=== PATIENT | female | born 1990 | race Caucasian/White ===

== ENCOUNTER 2020-12-11 07:05 | Inpatient (IN) | payer BC ==
[2020-12-11] MEDS ORDERED: Nalbuphine 10 MG/1 ML Vial IVPUSH PRN (09:12)
[2020-12-11] MEDS ORDERED: Calcium Carbonate 500 MG Tab.Chew PO PRN (09:12)
[2020-12-11] MEDS ORDERED: Ondansetron 4 MG/2 ML SDV IVPUSH PRN (09:12)
[2020-12-11] MEDS ORDERED: Sodium Chloride 0.9% 10 ML Syringe FLUSH PRN (09:12)
[2020-12-11] MEDS ORDERED: Lidocaine 1% 50 ML MDV INJECT ONE (09:12)
[2020-12-11] MEDS ORDERED: Oxytocin/Lactated Ringers 10 UNIT/1,000 ML BAG IV SCH ×2 (09:15)
[2020-12-11] MEDS ORDERED: Oxytocin/Lactated Ringers 10 UNIT/1,000 ML BAG IV ONE (09:20)
[2020-12-11] MEDS: Lactated Ringers 1,000 ML IV SCH ×2 (09:26→20:12)
[2020-12-11] MEDS ORDERED: Citric Acid/Sodium Citrate Solution 30 ML Cup ONE (16:53)
[2020-12-11] MEDS ORDERED: Metoclopramide 10 MG/2 ML SDV ONE (16:53)
[2020-12-11] MEDS ORDERED: Propofol 200 MG/20 ML SDV ONE (16:59)
[2020-12-11] MEDS ORDERED: Succinylcholine/Sod PF 100 MG/5 ML SYRINGE IV ONE (17:08)
[2020-12-11] MEDS ORDERED: fentaNYL 250 MCG/5 ML SDV ONE (17:09)
[2020-12-11] MEDS ORDERED: ceFAZolin 1 GM Vial ONE ×2 (17:11→17:18)
[2020-12-11] MEDS ORDERED: Bupivacaine 0.5% 30 ML SDV ONE (17:19)
[2020-12-11] MEDS ORDERED: Ketorolac 30 MG/ML SDV ONE (17:27)
[2020-12-11] MEDS ORDERED: Ondansetron 4 MG/2 ML SDV ONE (17:35)
[2020-12-11] MEDS ORDERED: Lactated Ringers 1,000 ML ONE (17:38)
[2020-12-11] MEDS ORDERED: fentaNYL 100 MCG/2 ML SDV IVPUSH PRN (18:00)
--- NOTE | 2020-12-11 18:01 | PCM.OPNOTE ---
- General Post-Op/Procedure Note Date of Surgery/Procedure: 12/11/20 Operative Procedure(s): primary Findings: Viable male, weight 3480, 8/9 APGARS at 1708. Normal uterus tubes and ovaries. Pre Op Diagnosis: non reassuring monitoring Post-Op Diagnosis: Same Anesthesia Technique: General ET Tube Primary Surgeon: Mona Liu Anesthesia Provider: Cuauhtemoc Ma Stogy Roller: Yadi Marcos Fluid Replacement, Intraop: 2,000 Output, Urine Amount: 350 EBL in mLs: 650 Complications: None Condition: Good Free Text/Narrative:: The patient was taken to the operating room where general anesthesia was dosed to surgical levels without difficulty. The patient was prepped and draped in the usual sterile fashion in the dorsal supine position with a leftward tilt. A Pfannenstiel skin incision was made with the scalpel and carried through to the underlying layer of fascia. The fascia was entered bluntly. The rectus muscles were dissected in the midline. The peritoneum was entered bluntly; this incision was extended superiorly and inferiorly with good visualization of the bladder. The bladder blade was inserted. The lower uterine segment was incised in a transverse fashion using the scalpel and with digital traction. Meconium stained fluid was noted. The infant was subsequently delivered by flexing the head to the incision. Body and shoulders followed without difficu lty. The cord was clamped and cut. The infant was subsequently handed to the awaiting instructor product inspection whose presence had been requested.. The placenta was delivered spontaneously intact with a three-vessel cord noted. The uterus was exteriorized and cleared of all clots and debris. The uterine incision was repaired in 2 layers using 0 monocryl. Hemostasis was visualized. Hemostasis was visualized bilaterally. The uterus was returned to the abdomen. The uterine incision was reexamined and it was noted to be hemostatic. The pelvis was copiously irrigated. The fascia was closed with 1 PDS suture, and the skin was closed with 3-0 monocryl. Sponge, lap, and instrument counts were correct x2. The patient was stable at the completion of the procedure and was subsequently transferred to the recovery room in stable condition.
--- NOTE | 2020-12-11 18:02 | PCM.POSTAN ---
POST ANESTHESIA ASSESSMENT - MENTAL STATUS Mental Status: Alert, Oriented - RESPIRATORY Respiratory Status: Respiratory Rate WNL, Airway Patent, O2 Saturation Stable - CARDIOVASCULAR CV Status: Pulse Rate WNL, Blood Pressure Stable - GASTROINTESTINAL GI Status: No Symptoms - PAIN Pain Score: 1 - POST OP HYDRATION Hydration Status: Adequate & Stable - OBSERVATIONS Free Text/Narrative:: no anesthesia complications noted
--- NOTE | 2020-12-11 18:04 | PCM.PREANE ---
Preanesthetic Assessment - Procedure Proposed Procedure: Stat emergency C- section pt in OR room1 when I arrived - Anesthesia/Transfusion/Family Hx Anesthesia History: Unknown Family History of Anesthesia Reaction: No Transfusion History: No Prior Transfusion(s) - Review of Systems General: Fatigue, Malaise Pulmonary: No Symptoms Cardiovascular: No Symptoms Gastrointestinal: Abdominal Pain (labor) Neurological: No Symptoms Other: Reports: None - Physical Assessment Height: 1.68 m Weight: 121.109 kg ASA Class: 2E Mental Status: Alert & Oriented x3 Airway Class: Mallampati = 3 Dentition: Reports: Normal Dentition Thyro-Mental Finger Breadths: 2 Mouth Opening Finger Breadths: 2 ROM/Head Extension: Full Lungs: Clear to Auscultation, Normal Respiratory Effort Cardiovascular: Regular Rate, Regular Rhythm - Lab Values: Laboratory Last Values WBC 8.41 K/mm3 (3.98-10.04) 12/11/20 07:55 RBC 4.06 M/mm3 (3.98-5.22) 12/11/20 07:55 Hgb 12.0 gm/dl (11.2-15.7) 12/11/20 07:55 Hct 36.8 % (34.1-44.9) 12/11/20 07:55 MCV 90.6 fl (79.4-94.8) 12/11/20 07:55 MCH 29.6 pg (25.6-32.2) 12/11/20 07:55 MCHC 32.6 g/dl (32.2-35.5) 12/11/20 07:55 RDW Std Deviation 45.9 fL (36.4-46.3) 12/11/20 07:55 Plt Count 251 K/mm3 (182-369) 12/11/20 07:55 MPV 10.0 fl (9.4-12.3) 12/11/20 07:55 Neut % (Auto) 81.0 % (34.0-71.1) H 12/11/20 07:55 Lymph % (Auto) 11.9 % (19.3-51.7) L 12/11/20 07:55 [place] % (Auto) 4.9 % (4.7-12.5) 12/11/20 07:55 Eos % (Auto) 0.7 (0.7-5.8) 12/11/20 07:55 Baso % (Auto) 0.2 % (0.1-1.2) 12/11/20 07:55 Neut # (Auto) 6.81 K/mm3 (1.56-6.13) H 12/11/20 07:55 Lymph # (Auto) 1.00 K/mm3 (1.18-3.74) L 12/11/20 07:55 [place] # (Auto) 0.41 K/mm3 (0.24-0.36) H 12/11/20 07:55 Eos # (Auto) 0.06 K/mm3 (0.04-0.36) 12/11/20 07:55 Baso # (Auto) 0.02 K/mm3 (0.01-0.08) 12/11/20 07:55 Manual Slide Review Abnormal smear 12/11/20 07:55 Sodium 140 mEq/L (136-145) 12/11/20 07:55 Potassium 3.7 mEq/L (3.5-5.1) 12/11/20 07:55 Chloride 106 mEq/L (98-107) 12/11/20 07:55 Carbon Dioxide 23 mEq/L (21-32) 12/11/20 07:55 Anion Gap 14.7 (5-15) 12/11/20 07:55 BUN 9 mg/dL (7-18) 12/11/20 07:55 Creatinine 0.5 mg/dL (0.55-1.02) L 12/11/20 07:55 Est Cr Clr Drug Dosing 154.01 mL/min 12/11/20 07:55 Estimated GFR (MDRD) > 60 mL/min (>60) 12/11/20 07:55 BUN/Creatinine Ratio 18.0 (14-18) 12/11/20 07:55 Glucose 102 mg/dL (70-99) H 12/11/20 07:55 Calcium 9.1 mg/dL (8.5-10.1) 12/11/20 07:55 Total Bilirubin 0.2 mg/dL (0.2-1.0) 12/11/20 07:55 AST 21 U/L (15-37) 12/11/20 07:55 ALT 11 U/L (14-59) L 12/11/20 07:55 Alkaline Phosphatase 96 U/L (46-116) 12/11/20 07:55 Total Protein 6.4 g/dl (6.4-8.2) 12/11/20 07:55 Albumin 2.5 g/dl (3.4-5.0) L 12/11/20 07:55 Globulin 3.9 gm/dL 12/11/20 07:55 Albumin/Globulin Ratio 0.6 (1-2) L 12/11/20 07:55 Urine Color Yellow (Yellow) 12/11/20 07:55 Urine Appearance Clear (Clear) 12/11/20 07:55 Urine pH 7.5 (5.0-8.0) 12/11/20 07:55 Ur Specific [place] 1.020 (1.005-1.030) 12/11/20 07:55 Urine Protein 1+ (Negative) H 12/11/20 07:55 Urine Glucose (UA) Negative (Negative) 12/11/20 07:55 Urine Ketones Trace (Negative) H 12/11/20 07:55 Urine Occult Blood Negative (Negative) 12/11/20 07:55 Urine Nitrite Negative (Negative) 12/11/20 07:55 Urine Bilirubin Negative (Negative) 12/11/20 07:55 Urine Urobilinogen 0.2 (0.2-1.0) 12/11/20 07:55 Ur Leukocyte Esterase Trace (Negative) H 12/11/20 07:55 Ur Random Creatinine 117.1 mg/dL (30.0-125.0) 12/11/20 07:55 U Random Total Protein 35.9 mg/dL (0.0-11.8) H 12/11/20 07:55 Protein/Creatinin Ratio 306.6 mg/g (0-149) H 12/11/20 07:55 RPR Non-reactive (NONREACTIVE) 12/11/20 07:55 SARS-CoV-2 RNA (IAN) Negative (NEGATIVE) 12/11/20 07:55 Blood Type A POSITIVE 12/11/20 07:55 Gel Antibody Screen Negative 12/11/20 07:55 - Allergies Allergies/Adverse Reactions: Allergies Allergy/AdvReac Type Severity Reaction Status Date / Time No Known Allergies Allergy Verified 12/11/20 09:10 - Anesthesia Plan Pre-Op Medication Ordered: None - Acknowledgements Anesthesia Type Planned: General Anesthesia Pt an Appropriate Candidate for the Planned Anesthesia: Yes Alternatives and Risks of Anesthesia Discussed w Pt/Guardian: Yes Pt/Guardian Understands and Agrees with Anesthesia Plan: Yes PreAnesthesia Questionnaire - Past Health History Medical/Surgical History: Denies Medical/Surgical History Gastrointestinal History: Reports: GERD - Past Surgical History Respiratory Surgical History: Reports: None GI Surgical History: Reports: None Female Surgical History: Reports: None - SUBSTANCE USE Tobacco Use Status *Q: Former Tobacco User Tobacco Use Within Last Twelve Months: No Second Hand Smoke Exposure: No Recreational Drug Use History: No - CURRENT (IN HOUSE) MEDS Current Meds: Current Medications Calcium Carbonate/Glycine (Calcium Carbonate 500 Mg Tab.Chew) 1,000 mg PO Q2H PRN PRN Reason: Indigestion Fentanyl (Fentanyl 100 Mcg/2 Ml Sdv) 50 mcg IVPUSH Q5M PRN PRN Reason: Pain Lactated Ringer's (Ringers, Lactated) 1,000 mls @ 100 mls/hr IV ASDIRECTED LEAH Last Admin: 12/11/20 09:26 Dose: 100 mls/hr Documented by: Oxytocin/Lactated Ringer's (Pitocin In Lr 10 Units/1,000 Ml) 10 unit in 1,000 mls @ 12 mls/hr IV TITRATE LEAH; Protocol Last Titration: 12/11/20 14:16 Dose: 12 munits/min, 72 mls/hr Documented by: Oxytocin/Lactated Ringer's (Pitocin In Lr 10 Units/1,000 Ml) 10 unit in 1,000 mls @ 500 mls/hr IV .CONTINUOUS LEAH Nalbuphine HCl (Nalbuphine 10 Mg/1 Ml Vial) 10 mg IVPUSH Q2H PRN PRN Reason: Pain Ondansetron HCl (Ondansetron 4 Mg/2 Ml Sdv) 4 mg IVPUSH Q4H PRN PRN Reason: Nausea/Vomiting Sodium Chloride (Sodium Chloride 0.9% 10 Ml Syringe) 10 ml FLUSH ASDIRECTED PRN PRN Reason: Keep Vein Open Discontinued Medications Bupivacaine HCl (Bupivacaine 0.5% 30 Ml Sdv) Confirm Administered Dose 30 ml .ROUTE .STK-MED ONE Stop: 12/11/20 17:20 Cefazolin Sodium (Cefazolin 1 Gm Vial) Confirm Administered Dose 2 gm .ROUTE .STK-MED ONE Stop: 12/11/20 17:12 Cefazolin Sodium (Cefazolin 1 Gm Vial) Confirm Administered Dose 1 gm .ROUTE .STK-MED ONE Stop: 12/11/20 17:19 Citric Acid/Sodium Citrate (Citric Acid/Sodium Citrate Solution 30 Ml Cup) Confirm Administered Dose 30 ml .ROUTE .STK-MED ONE Stop: 12/11/20 16:54 Fentanyl (Fentanyl 250 Mcg/5 Ml Sdv) Confirm Administered Dose 250 mcg .ROUTE .STK-MED ONE Stop: 12/11/20 17:10 Oxytocin/Lactated Ringer's (Pitocin In Lr 10 Units/1,000 Ml) Confirm Administered Dose 10 unit in 1,000 mls @ as directed IV .STK-MED ONE Stop: 12/11/20 09:21 Last Admin: 12/11/20 10:45 Dose: Not Given Documented by: Lactated Ringer's (Ringers, Lactated) Confirm Administered Dose 1,000 mls @ as directed .ROUTE .STK-MED ONE Stop: 12/11/20 17:39 Ketorolac Tromethamine (Ketorolac 30 Mg/Ml Sdv) Confirm Administered Dose 30 mg .ROUTE .STK-MED ONE Stop: 12/11/20 17:28 Lidocaine HCl (Lidocaine 1% 50 Ml Mdv) 50 ml INJECT ONETIME ONE Stop: 12/11/20 09:13 Metoclopramide HCl (Metoclopramide 10 Mg/2 Ml Sdv) Confirm Administered Dose 10 mg .ROUTE .STK-MED ONE Stop: 12/11/20 16:54 Ondansetron HCl (Ondansetron 4 Mg/2 Ml Sdv) Confirm Administered Dose 4 mg .ROUTE .STK-MED ONE Stop: 12/11/20 17:36 Propofol (Propofol 200 Mg/20 Ml Sdv) Confirm Administered Dose 200 mg .ROUTE .STK-MED ONE Stop: 12/11/20 17:00
--- NOTE | 2020-12-11 18:21 | CR ---
Abdomen: Supine view of the abdomen was obtained. Comparison: No previous abdominal imaging is available. Findings: Upper portions of the abdomen as well as lateral portions on the left side were not included on this study. There are no discrete soft tissue foreign bodies being seen. Impression: 1. No foreign bodies are appreciated on this limited abdomen study. Diagnostic code #1
[2020-12-11] MEDS ORDERED: Naloxone 0.4 MG/ML SDV IVPUSH PRN (19:28)
[2020-12-11] MEDS ORDERED: Dextrose 5%-Lactated Ringers 1,000 ML IV SCH (19:28)
[2020-12-11] MEDS ORDERED: diphenhydrAMINE 50 MG/ML SDV IVPUSH PRN (19:28)
[2020-12-11] MEDS ORDERED: Acetaminophen/oxyCODONE 325-5 MG Tab PO PRN (19:28)
[2020-12-11] MEDS ORDERED: ePHEDrine 50 MG/ML SDV IVPUSH PRN (19:28)
[2020-12-11] MEDS: Acetaminophen/oxyCODONE 325-5 MG Tab PO PRN (20:32)
[2020-12-12] MEDS: Ketorolac 30 MG/ML SDV IVPUSH SCH ×3 (00:17→12:12)
[2020-12-12] MEDS: Acetaminophen/oxyCODONE 325-5 MG Tab PO PRN ×2 (05:15→11:37)
--- NOTE | 2020-12-12 07:53 | PCM.LDHP ---
L&D History of Present Illness - General Date of Service: 12/12/20 Admit Problem/Dx: Admission Diagnosis/Problem Admission Diagnosis/Problem - History of Present Illness Introduction:: Late entry transcribed from my paper h&p as [employer] down yesterday morning 30 year old at 40w5 here for induction. PNC with Dr aLdd without complication a+/imm/gbs neg Pain Score: 1 - Related Data Allergies/Adverse Reactions: Allergies Allergy/AdvReac Type Severity Reaction Status Date / Time No Known Allergies Allergy Verified 12/11/20 09:10 Past Medical History - Past Health History Medical/Surgical History: Denies Medical/Surgical History Gastrointestinal History: Reports: GERD - Past Surgical History Respiratory Surgical History: Reports: None GI Surgical History: Reports: None Female Surgical History: Reports: None Social & Family History - Family History Family Medical History: No Pertinent Family History - Tobacco Use Tobacco Use Status *Q: Former Tobacco User Used Tobacco, but Quit: Yes Month/Year Tobacco Last Used: 2017 Second Hand Smoke Exposure: No - Caffeine Use Caffeine Use: Reports: None - Recreational Drug Use Recreational Drug Use: No H&P Review of Systems - Review of Systems: Review Of Systems: See Below General: Reports: No Symptoms HEENT: Reports: No Symptoms Pulmonary: Reports: No Symptoms Cardiovascular: Reports: No Symptoms Gastrointestinal: Reports: No Symptoms Genitourinary: Reports: No Symptoms Musculoskeletal: Reports: No Symptoms Skin: Reports: No Symptoms Psychiatric: Reports: No Symptoms Neurological: Reports: No Symptoms Hematologic/Lymphatic: Reports: No Symptoms Immunologic: Reports: No Symptoms L&D Exam - Exam Exam: See Below - Vital Signs Vital Signs: Last Vital Signs Temp 36.2 C 12/12/20 01:34 Pulse 80 12/12/20 01:34 Resp 14 12/12/20 01:34 BP 123/68 12/12/20 01:34 Pulse Ox 96 12/12/20 01:34 Weight: 121.109 kg - OB Specific Contraction Intensity: Moderate to Strong Movement: Active Heart Tones: Present Heart Rate (FHR) Variability: Moderate (6-25 bmp) Presentation: Vertex - Thomson Score Thomson Score Cervix Position: Posterior Thomson Score Consistency: Soft Thomson Score Effacement: 0-30% Thomson Score Dilation: 1-2 cm Thomson Score Infant's Station: -3 Thomson Score Total: 3 - Exam General: Alert, Oriented HEENT: PERRLA, Conjunctiva Clear, EACs Clear, EOMI, Hearing Intact, Mucosa Moist & [place], Nares Patent, Normal Nasal Septum, Posterior Pharynx Clear, TMs Clear Neck: Supple, Trachea Midline Lungs: Clear to Auscultation, Normal Respiratory Effort Cardiovascular: Regular Rate, Regular Rhythm GI/Abdominal Exam: Normal Bowel Sounds, Soft, Non-Tender, No Organomegaly, No Distention, No Abnormal Bruit, No Mass, Pelvis Stable Rectal Exam: Normal Exam, Normal Rectal Tone Genitourinary: Normal external exam, Normal bimanual exam, Normal speculum exam Back Exam: Normal Inspection, Full Range of Motion Extremities: Normal Inspection, Normal Range of Motion, Non-Tender, No Pedal Edema, Normal Capillary Refill Skin: Warm, Dry, Intact Neurological: Cranial Nerves Intact, Reflexes Equal Bilateral Psychiatric: Alert, Normal Affect, Normal Mood - Patient Data Lab Results Last 24 hrs: Laboratory Results - last 24 hr 12/11/20 12/11/20 12/11/20 Range/Units 07:55 07:55 07:55 WBC (3.98-10.04) K/mm3 RBC (3.98-5.22) M/mm3 Hgb (11.2-15.7) gm/dl Hct (34.1-44.9) % MCV (79.4-94.8) fl MCH (25.6-32.2) pg MCHC (32.2-35.5) g/dl RDW Std Deviation (36.4-46.3) fL Plt Count (182-369) K/mm3 MPV (9.4-12.3) fl Neut % (Auto) (34.0-71.1) % Lymph % (Auto) (19.3-51.7) % [place] % (Auto) (4.7-12.5) % Eos % (Auto) (0.7-5.8) Baso % (Auto) (0.1-1.2) % Neut # (Auto) (1.56-6.13) K/mm3 Lymph # (Auto) (1.18-3.74) K/mm3 [place] # (Auto) (0.24-0.36) K/mm3 Eos # (Auto) (0.04-0.36) K/mm3 Baso # (Auto) (0.01-0.08) K/mm3 Manual Slide Review Sodium 140 (136-145) mEq/L Potassium 3.7 (3.5-5.1) mEq/L Chloride 106 (98-107) mEq/L Carbon Dioxide 23 (21-32) mEq/L Anion Gap 14.7 (5-15) BUN 9 (7-18) mg/dL Creatinine 0.5 L (0.55-1.02) mg/dL Est Cr Clr Drug Dosing 154.01 mL/min Estimated GFR (MDRD) > 60 (>60) mL/min BUN/Creatinine Ratio 18.0 (14-18) Glucose 102 H (70-99) mg/dL Calcium 9.1 (8.5-10.1) mg/dL Total Bilirubin 0.2 (0.2-1.0) mg/dL AST 21 (15-37) U/L ALT 11 L (14-59) U/L Alkaline Phosphatase 96 (46-116) U/L Total Protein 6.4 (6.4-8.2) g/dl Albumin 2.5 L (3.4-5.0) g/dl Globulin 3.9 gm/dL Albumin/Globulin Ratio 0.6 L (1-2) Urine Color Yellow (Yellow) Urine Appearance Clear (Clear) Urine pH 7.5 (5.0-8.0) Ur Specific [place] 1.020 (1.005-1.030) Urine Protein 1+ H (Negative) Urine Glucose (UA) Negative (Negative) Urine Ketones Trace H (Negative) Urine Occult Blood Negative (Negative) Urine Nitrite Negative (Negative) Urine Bilirubin Negative (Negative) Urine Urobilinogen 0.2 (0.2-1.0) Ur Leukocyte Esterase Trace H (Negative) Ur Random Creatinine 117.1 (30.0-125.0) mg/dL U Random Total Protein 35.9 H (0.0-11.8) mg/dL Protein/Creatinin Ratio 306.6 H (0-149) mg/g RPR (NONREACTIVE) SARS-CoV-2 RNA (IAN) (NEGATIVE) Blood Type Gel Antibody Screen 12/11/20 12/11/20 12/11/20 Range/Units 07:55 07:55 07:55 WBC 8.41 (3.98-10.04) K/mm3 RBC 4.06 (3.98-5.22) M/mm3 Hgb 12.0 (11.2-15.7) gm/dl Hct 36.8 (34.1-44.9) % MCV 90.6 (79.4-94.8) fl MCH 29.6 (25.6-32.2) pg MCHC 32.6 (32.2-35.5) g/dl RDW Std Deviation 45.9 (36.4-46.3) fL Plt Count 251 (182-369) K/mm3 MPV 10.0 (9.4-12.3) fl Neut % (Auto) 81.0 H (34.0-71.1) % Lymph % (Auto) 11.9 L (19.3-51.7) % [place] % (Auto) 4.9 (4.7-12.5) % Eos % (Auto) 0.7 (0.7-5.8) Baso % (Auto) 0.2 (0.1-1.2) % Neut # (Auto) 6.81 H (1.56-6.13) K/mm3 Lymph # (Auto) 1.00 L (1.18-3.74) K/mm3 [place] # (Auto) 0.41 H (0.24-0.36) K/mm3 Eos # (Auto) 0.06 (0.04-0.36) K/mm3 Baso # (Auto) 0.02 (0.01-0.08) K/mm3 Manual Slide Review Abnormal smear Sodium (136-145) mEq/L Potassium (3.5-5.1) mEq/L Chloride (98-107) mEq/L Carbon Dioxide (21-32) mEq/L Anion Gap (5-15) BUN (7-18) mg/dL Creatinine (0.55-1.02) mg/dL Est Cr Clr Drug Dosing mL/min Estimated GFR (MDRD) (>60) mL/min BUN/Creatinine Ratio (14-18) Glucose (70-99) mg/dL Calcium (8.5-10.1) mg/dL Total Bilirubin (0.2-1.0) mg/dL AST (15-37) U/L ALT (14-59) U/L Alkaline Phosphatase (46-116) U/L Total Protein (6.4-8.2) g/dl Albumin (3.4-5.0) g/dl Globulin gm/dL Albumin/Globulin Ratio (1-2) Urine Color (Yellow) Urine Appearance (Clear) Urine pH (5.0-8.0) Ur Specific [place] (1.005-1.030) Urine Protein (Negative) Urine Glucose (UA) (Negative) Urine Ketones (Negative) Urine Occult Blood (Negative) Urine Nitrite (Negative) Urine Bilirubin (Negative) Urine Urobilinogen (0.2-1.0) Ur Leukocyte Esterase (Negative) Ur Random Creatinine (30.0-125.0) mg/dL U Random Total Protein (0.0-11.8) mg/dL Protein/Creatinin Ratio (0-149) mg/g RPR Non-reactive (NONREACTIVE) SARS-CoV-2 RNA (IAN) Negative (NEGATIVE) Blood Type Gel Antibody Screen 12/11/20 12/12/20 Range/Units 07:55 07:03 WBC 9.92 (3.98-10.04) K/mm3 RBC 2.98 L (3.98-5.22) M/mm3 Hgb 8.8 L D (11.2-15.7) gm/dl Hct 27.7 L (34.1-44.9) % MCV 93.0 (79.4-94.8) fl MCH 29.5 (25.6-32.2) pg MCHC 31.8 L (32.2-35.5) g/dl RDW Std Deviation 47.3 H (36.4-46.3) fL Plt Count 187 (182-369) K/mm3 MPV 9.1 L (9.4-12.3) fl Neut % (Auto) 82.4 H (34.0-71.1) % Lymph % (Auto) 11.6 L (19.3-51.7) % [place] % (Auto) 4.6 L (4.7-12.5) % Eos % (Auto) 0.5 L (0.7-5.8) Baso % (Auto) 0.1 (0.1-1.2) % Neut # (Auto) 8.17 H (1.56-6.13) K/mm3 Lymph # (Auto) 1.15 L (1.18-3.74) K/mm3 [place] # (Auto) 0.46 H (0.24-0.36) K/mm3 Eos # (Auto) 0.05 (0.04-0.36) K/mm3 Baso # (Auto) 0.01 (0.01-0.08) K/mm3 Manual Slide Review Sodium (136-145) mEq/L Potassium (3.5-5.1) mEq/L Chloride (98-107) mEq/L Carbon Dioxide (21-32) mEq/L Anion Gap (5-15) BUN (7-18) mg/dL Creatinine (0.55-1.02) mg/dL Est Cr Clr Drug Dosing mL/min Estimated GFR (MDRD) (>60) mL/min BUN/Creatinine Ratio (14-18) Glucose (70-99) mg/dL Calcium (8.5-10.1) mg/dL Total Bilirubin (0.2-1.0) mg/dL AST (15-37) U/L ALT (14-59) U/L Alkaline Phosphatase (46-116) U/L Total Protein (6.4-8.2) g/dl Albumin (3.4-5.0) g/dl Globulin gm/dL Albumin/Globulin Ratio (1-2) Urine Color (Yellow) Urine Appearance (Clear) Urine pH (5.0-8.0) Ur Specific [place] (1.005-1.030) Urine Protein (Negative) Urine Glucose (UA) (Negative) Urine Ketones (Negative) Urine Occult Blood (Negative) Urine Nitrite (Negative) Urine Bilirubin (Negative) Urine Urobilinogen (0.2-1.0) Ur Leukocyte Esterase (Negative) Ur Random Creatinine (30.0-125.0) mg/dL U Random Total Protein (0.0-11.8) mg/dL Protein/Creatinin Ratio (0-149) mg/g RPR (NONREACTIVE) SARS-CoV-2 RNA (IAN) (NEGATIVE) Blood Type A POSITIVE Gel Antibody Screen Negative Result Diagrams: 12/12/20 07:03 12/11/20 07:55 Problem List Initiated/Reviewed/Updated: Yes Orders Last 24hrs: Active Orders 24 hr Category Date Time Status Communication Order [RC] PER UNIT ROUTINE Care 12/11/20 19:28 Active Communication Order [RC] PER UNIT ROUTINE Care 12/11/20 19:28 Active Communication Order [RC] PER UNIT ROUTINE Care 12/11/20 19:28 Active Communication Order [RC] ROUTINE Care 12/11/20 18:00 Active Notify Provider Intake and Out [RC] ASDIRECTED Care 12/11/20 19:28 Active Notify Provider [RC] ASDIRECTED Care 12/11/20 18:00 Active Urinary Catheter Removal [RC] Per Unit Routine Care 12/12/20 17:55 Active Vital Signs [RC] Q4H Care 12/11/20 19:28 Active Regular Diet [DIET] Diet 12/11/20 Breakfast Active Regular Diet [DIET] Diet 12/11/20 Breakfast Active HEP C VIRUS AB [REF] Stat Lab 12/11/20 07:55 Received Acetaminophen/oxyCODONE [Percocet 325-5 MG] Med 12/11/20 19:28 Active 1 tab PO Q4H PRN Acetaminophen/oxyCODONE [Percocet 325-5 MG] Med 12/11/20 19:28 Active 2 tab PO Q4H PRN Ibuprofen [Motrin] Med 12/11/20 19:28 Active 600 mg PO Q6H PRN Ketorolac [Toradol] Med 12/12/20 00:15 Active 30 mg IVPUSH Q6H Naloxone [Narcan] Med 12/11/20 19:28 Active 0.1 mg IVPUSH SEECOMMENT PRN diphenhydrAMINE [Benadryl] Med 12/11/20 19:28 Active 25 mg IVPUSH Q6H PRN ePHEDrine [ePHEDrine sulfate] Med 12/11/20 19:28 Active 5 mg IVPUSH SEECOMMENT PRN fentaNYL [Sublimaze] Med 12/11/20 18:00 Active 50 mcg IVPUSH Q5M PRN Assess Lochia [WOMSER] Per Unit Routine Oth 12/11/20 19:28 Ordered Assess Uterine Involution [WOMSER] Per Unit Routine Oth 12/11/20 19:28 Ordered Medication Administration Instruction [OM.PC] Routine Oth 12/11/20 19:28 Ordered Resuscitation Status Routine Resus Stat 12/11/20 09:12 Ordered Medication Orders Diphenhydramine HCl (Diphenhydramine 50 Mg/Ml Sdv) 25 mg IVPUSH Q6H PRN PRN Reason: Itching or Nausea Ephedrine Sulfate (Ephedrine 50 Mg/Ml Sdv) 5 mg IVPUSH SEECOMMENT PRN PRN Reason: Other Fentanyl (Fentanyl 100 Mcg/2 Ml Sdv) 50 mcg IVPUSH Q5M PRN PRN Reason: Pain Ibuprofen (Ibuprofen 600 Mg Tab) 600 mg PO Q6H PRN PRN Reason: mild pain or fever Ketorolac Tromethamine (Ketorolac 30 Mg/Ml Sdv) 30 mg IVPUSH Q6H LEAH Stop: 12/12/20 12:16 Last Admin: 12/12/20 06:38 Dose: 30 mg Documented by: Admin: 12/12/20 00:17 Dose: 30 mg Documented by: ARLENE Naloxone HCl (Naloxone 0.4 Mg/Ml Sdv) 0.1 mg IVPUSH SEECOMMENT PRN PRN Reason: Respiratory Depression Oxycodone/Acetaminophen (Acetaminophen/Oxycodone 325-5 Mg Tab) 1 tab PO Q4H PRN PRN Reason: Pain (moderate 4-6) Oxycodone/Acetaminophen (Acetaminophen/Oxycodone 325-5 Mg Tab) 2 tab PO Q4H PRN PRN Reason: Pain (severe 7-10) Last Admin: 12/12/20 05:15 Dose: 2 tab Documented by: Admin: 12/11/20 20:32 Dose: 2 tab Documented by: ARLENE Assessment/Plan Comment:: Term induction. Powers bulb placed in usual fashion with speculum. Instilled 50 mL fluid.
--- NOTE | 2020-12-12 07:56 | PCM.PNPP ---
- General Info Date of Service: 12/12/20 Functional Status: Reports: Pain Controlled - Review of Systems General: Reports: No Symptoms HEENT: Reports: No Symptoms Pulmonary: Reports: No Symptoms Cardiovascular: Reports: No Symptoms Gastrointestinal: Reports: No Symptoms Genitourinary: Reports: No Symptoms Musculoskeletal: Reports: No Symptoms Skin: Reports: No Symptoms Neurological: Reports: No Symptoms Psychiatric: Reports: No Symptoms - General Info Date of Service: 12/12/20 - Patient Data Vital Signs - Most Recent: Last Vital Signs Temp 36.2 C 12/12/20 01:34 Pulse 80 12/12/20 01:34 Resp 14 12/12/20 01:34 BP 123/68 12/12/20 01:34 Pulse Ox 96 12/12/20 01:34 Weight - Most Recent: 121.109 kg I&O - Last 24 Hours: Intake & Output 12/11/20 12/12/20 12/12/20 22:59 06:59 14:59 Intake Total 2800 2100 Output Total 850 1000 Balance 1950 1100 Lab Results - Last 24 Hours: Laboratory Results - last 24 hr 12/11/20 12/11/20 12/11/20 Range/Units 07:55 07:55 07:55 WBC (3.98-10.04) K/mm3 RBC (3.98-5.22) M/mm3 Hgb (11.2-15.7) gm/dl Hct (34.1-44.9) % MCV (79.4-94.8) fl MCH (25.6-32.2) pg MCHC (32.2-35.5) g/dl RDW Std Deviation (36.4-46.3) fL Plt Count (182-369) K/mm3 MPV (9.4-12.3) fl Neut % (Auto) (34.0-71.1) % Lymph % (Auto) (19.3-51.7) % [place] % (Auto) (4.7-12.5) % Eos % (Auto) (0.7-5.8) Baso % (Auto) (0.1-1.2) % Neut # (Auto) (1.56-6.13) K/mm3 Lymph # (Auto) (1.18-3.74) K/mm3 [place] # (Auto) (0.24-0.36) K/mm3 Eos # (Auto) (0.04-0.36) K/mm3 Baso # (Auto) (0.01-0.08) K/mm3 Manual Slide Review Sodium 140 (136-145) mEq/L Potassium 3.7 (3.5-5.1) mEq/L Chloride 106 (98-107) mEq/L Carbon Dioxide 23 (21-32) mEq/L Anion Gap 14.7 (5-15) BUN 9 (7-18) mg/dL Creatinine 0.5 L (0.55-1.02) mg/dL Est Cr Clr Drug Dosing 154.01 mL/min Estimated GFR (MDRD) > 60 (>60) mL/min BUN/Creatinine Ratio 18.0 (14-18) Glucose 102 H (70-99) mg/dL Calcium 9.1 (8.5-10.1) mg/dL Total Bilirubin 0.2 (0.2-1.0) mg/dL AST 21 (15-37) U/L ALT 11 L (14-59) U/L Alkaline Phosphatase 96 (46-116) U/L Total Protein 6.4 (6.4-8.2) g/dl Albumin 2.5 L (3.4-5.0) g/dl Globulin 3.9 gm/dL Albumin/Globulin Ratio 0.6 L (1-2) Urine Color Yellow (Yellow) Urine Appearance Clear (Clear) Urine pH 7.5 (5.0-8.0) Ur Specific [place] 1.020 (1.005-1.030) Urine Protein 1+ H (Negative) Urine Glucose (UA) Negative (Negative) Urine Ketones Trace H (Negative) Urine Occult Blood Negative (Negative) Urine Nitrite Negative (Negative) Urine Bilirubin Negative (Negative) Urine Urobilinogen 0.2 (0.2-1.0) Ur Leukocyte Esterase Trace H (Negative) Ur Random Creatinine 117.1 (30.0-125.0) mg/dL U Random Total Protein 35.9 H (0.0-11.8) mg/dL Protein/Creatinin Ratio 306.6 H (0-149) mg/g RPR (NONREACTIVE) SARS-CoV-2 RNA (IAN) (NEGATIVE) Blood Type Gel Antibody Screen 12/11/20 12/11/20 12/11/20 Range/Units 07:55 07:55 07:55 WBC 8.41 (3.98-10.04) K/mm3 RBC 4.06 (3.98-5.22) M/mm3 Hgb 12.0 (11.2-15.7) gm/dl Hct 36.8 (34.1-44.9) % MCV 90.6 (79.4-94.8) fl MCH 29.6 (25.6-32.2) pg MCHC 32.6 (32.2-35.5) g/dl RDW Std Deviation 45.9 (36.4-46.3) fL Plt Count 251 (182-369) K/mm3 MPV 10.0 (9.4-12.3) fl Neut % (Auto) 81.0 H (34.0-71.1) % Lymph % (Auto) 11.9 L (19.3-51.7) % [place] % (Auto) 4.9 (4.7-12.5) % Eos % (Auto) 0.7 (0.7-5.8) Baso % (Auto) 0.2 (0.1-1.2) % Neut # (Auto) 6.81 H (1.56-6.13) K/mm3 Lymph # (Auto) 1.00 L (1.18-3.74) K/mm3 [place] # (Auto) 0.41 H (0.24-0.36) K/mm3 Eos # (Auto) 0.06 (0.04-0.36) K/mm3 Baso # (Auto) 0.02 (0.01-0.08) K/mm3 Manual Slide Review Abnormal smear Sodium (136-145) mEq/L Potassium (3.5-5.1) mEq/L Chloride (98-107) mEq/L Carbon Dioxide (21-32) mEq/L Anion Gap (5-15) BUN (7-18) mg/dL Creatinine (0.55-1.02) mg/dL Est Cr Clr Drug Dosing mL/min Estimated GFR (MDRD) (>60) mL/min BUN/Creatinine Ratio (14-18) Glucose (70-99) mg/dL Calcium (8.5-10.1) mg/dL Total Bilirubin (0.2-1.0) mg/dL AST (15-37) U/L ALT (14-59) U/L Alkaline Phosphatase (46-116) U/L Total Protein (6.4-8.2) g/dl Albumin (3.4-5.0) g/dl Globulin gm/dL Albumin/Globulin Ratio (1-2) Urine Color (Yellow) Urine Appearance (Clear) Urine pH (5.0-8.0) Ur Specific [place] (1.005-1.030) Urine Protein (Negative) Urine Glucose (UA) (Negative) Urine Ketones (Negative) Urine Occult Blood (Negative) Urine Nitrite (Negative) Urine Bilirubin (Negative) Urine Urobilinogen (0.2-1.0) Ur Leukocyte Esterase (Negative) Ur Random Creatinine (30.0-125.0) mg/dL U Random Total Protein (0.0-11.8) mg/dL Protein/Creatinin Ratio (0-149) mg/g RPR Non-reactive (NONREACTIVE) SARS-CoV-2 RNA (IAN) Negative (NEGATIVE) Blood Type Gel Antibody Screen 12/11/20 12/12/20 Range/Units 07:55 07:03 WBC 9.92 (3.98-10.04) K/mm3 RBC 2.98 L (3.98-5.22) M/mm3 Hgb 8.8 L D (11.2-15.7) gm/dl Hct 27.7 L (34.1-44.9) % MCV 93.0 (79.4-94.8) fl MCH 29.5 (25.6-32.2) pg MCHC 31.8 L (32.2-35.5) g/dl RDW Std Deviation 47.3 H (36.4-46.3) fL Plt Count 187 (182-369) K/mm3 MPV 9.1 L (9.4-12.3) fl Neut % (Auto) 82.4 H (34.0-71.1) % Lymph % (Auto) 11.6 L (19.3-51.7) % [place] % (Auto) 4.6 L (4.7-12.5) % Eos % (Auto) 0.5 L (0.7-5.8) Baso % (Auto) 0.1 (0.1-1.2) % Neut # (Auto) 8.17 H (1.56-6.13) K/mm3 Lymph # (Auto) 1.15 L (1.18-3.74) K/mm3 [place] # (Auto) 0.46 H (0.24-0.36) K/mm3 Eos # (Auto) 0.05 (0.04-0.36) K/mm3 Baso # (Auto) 0.01 (0.01-0.08) K/mm3 Manual Slide Review Sodium (136-145) mEq/L Potassium (3.5-5.1) mEq/L Chloride (98-107) mEq/L Carbon Dioxide (21-32) mEq/L Anion Gap (5-15) BUN (7-18) mg/dL Creatinine (0.55-1.02) mg/dL Est Cr Clr Drug Dosing mL/min Estimated GFR (MDRD) (>60) mL/min BUN/Creatinine Ratio (14-18) Glucose (70-99) mg/dL Calcium (8.5-10.1) mg/dL Total Bilirubin (0.2-1.0) mg/dL AST (15-37) U/L ALT (14-59) U/L Alkaline Phosphatase (46-116) U/L Total Protein (6.4-8.2) g/dl Albumin (3.4-5.0) g/dl Globulin gm/dL Albumin/Globulin Ratio (1-2) Urine Color (Yellow) Urine Appearance (Clear) Urine pH (5.0-8.0) Ur Specific [place] (1.005-1.030) Urine Protein (Negative) Urine Glucose (UA) (Negative) Urine Ketones (Negative) Urine Occult Blood (Negative) Urine Nitrite (Negative) Urine Bilirubin (Negative) Urine Urobilinogen (0.2-1.0) Ur Leukocyte Esterase (Negative) Ur Random Creatinine (30.0-125.0) mg/dL U Random Total Protein (0.0-11.8) mg/dL Protein/Creatinin Ratio (0-149) mg/g RPR (NONREACTIVE) SARS-CoV-2 RNA (IAN) (NEGATIVE) Blood Type A POSITIVE Gel Antibody Screen Negative Med Orders - Current: Current Medications Diphenhydramine HCl (Diphenhydramine 50 Mg/Ml Sdv) 25 mg IVPUSH Q6H PRN PRN Reason: Itching or Nausea Ephedrine Sulfate (Ephedrine 50 Mg/Ml Sdv) 5 mg IVPUSH SEECOMMENT PRN PRN Reason: Other Fentanyl (Fentanyl 100 Mcg/2 Ml Sdv) 50 mcg IVPUSH Q5M PRN PRN Reason: Pain Ibuprofen (Ibuprofen 600 Mg Tab) 600 mg PO Q6H PRN PRN Reason: mild pain or fever Ketorolac Tromethamine (Ketorolac 30 Mg/Ml Sdv) 30 mg IVPUSH Q6H LEAH Stop: 12/12/20 12:16 Last Admin: 12/12/20 06:38 Dose: 30 mg Documented by: Naloxone HCl (Naloxone 0.4 Mg/Ml Sdv) 0.1 mg IVPUSH SEECOMMENT PRN PRN Reason: Respiratory Depression Oxycodone/Acetaminophen (Acetaminophen/Oxycodone 325-5 Mg Tab) 1 tab PO Q4H PRN PRN Reason: Pain (moderate 4-6) Oxycodone/Acetaminophen (Acetaminophen/Oxycodone 325-5 Mg Tab) 2 tab PO Q4H PRN PRN Reason: Pain (severe 7-10) Last Admin: 12/12/20 05:15 Dose: 2 tab Documented by: Discontinued Medications Bupivacaine HCl (Bupivacaine 0.5% 30 Ml Sdv) Confirm Administered Dose 30 ml .ROUTE .STK-MED ONE Stop: 12/11/20 17:20 Calcium Carbonate/Glycine (Calcium Carbonate 500 Mg Tab.Chew) 1,000 mg PO Q2H PRN PRN Reason: Indigestion Cefazolin Sodium (Cefazolin 1 Gm Vial) Confirm Administered Dose 2 gm .ROUTE .STK-MED ONE Stop: 12/11/20 17:12 Cefazolin Sodium (Cefazolin 1 Gm Vial) Confirm Administered Dose 1 gm .ROUTE .STK-MED ONE Stop: 12/11/20 17:19 Citric Acid/Sodium Citrate (Citric Acid/Sodium Citrate Solution 30 Ml Cup) Confirm Administered Dose 30 ml .ROUTE .STK-MED ONE Stop: 12/11/20 16:54 Last Admin: 12/11/20 16:50 Dose: 30 ml Documented by: Fentanyl (Fentanyl 250 Mcg/5 Ml Sdv) Confirm Administered Dose 250 mcg .ROUTE .STK-MED ONE Stop: 12/11/20 17:10 Lactated Ringer's (Ringers, Lactated) 1,000 mls @ 100 mls/hr IV ASDIRECTED LEAH Last Admin: 12/11/20 20:12 Dose: 999 mls/hr Documented by: Oxytocin/Lactated Ringer's (Pitocin In Lr 10 Units/1,000 Ml) 10 unit in 1,000 mls @ 12 mls/hr IV TITRATE LEAH; Protocol Last Titration: 12/11/20 14:16 Dose: 12 munits/min, 72 mls/hr Documented by: Oxytocin/Lactated Ringer's (Pitocin In Lr 10 Units/1,000 Ml) 10 unit in 1,000 mls @ 500 mls/hr IV .CONTINUOUS LEAH Oxytocin/Lactated Ringer's (Pitocin In Lr 10 Units/1,000 Ml) Confirm Administered Dose 10 unit in 1,000 mls @ as directed IV .STK-MED ONE Stop: 12/11/20 09:21 Last Admin: 12/11/20 10:45 Dose: Not Given Documented by: Lactated Ringer's (Ringers, Lactated) Confirm Administered Dose 1,000 mls @ as directed .ROUTE .STK-MED ONE Stop: 12/11/20 17:39 Dextrose/Lactated Ringer's (Dextrose 5%-Lactated Ringers) 1,000 mls @ 125 mls/hr IV ASDIRECTED LEAH Stop: 12/12/20 03:27 Last Admin: 12/11/20 21:57 Dose: 125 mls/hr Documented by: Ketorolac Tromethamine (Ketorolac 30 Mg/Ml Sdv) Confirm Administered Dose 30 mg .ROUTE .STK-MED ONE Stop: 12/11/20 17:28 Lidocaine HCl (Lidocaine 1% 50 Ml Mdv) 50 ml INJECT ONETIME ONE Stop: 12/11/20 09:13 Metoclopramide HCl (Metoclopramide 10 Mg/2 Ml Sdv) Confirm Administered Dose 10 mg .ROUTE .STK-MED ONE Stop: 12/11/20 16:54 Last Admin: 12/11/20 20:11 Dose: Not Given Documented by: Nalbuphine HCl (Nalbuphine 10 Mg/1 Ml Vial) 10 mg IVPUSH Q2H PRN PRN Reason: Pain Ondansetron HCl (Ondansetron 4 Mg/2 Ml Sdv) 4 mg IVPUSH Q4H PRN PRN Reason: Nausea/Vomiting Ondansetron HCl (Ondansetron 4 Mg/2 Ml Sdv) Confirm Administered Dose 4 mg .ROUTE .STK-MED ONE Stop: 12/11/20 17:36 Propofol (Propofol 200 Mg/20 Ml Sdv) Confirm Administered Dose 200 mg .ROUTE .STK-MED ONE Stop: 12/11/20 17:00 Sodium Chloride (Sodium Chloride 0.9% 10 Ml Syringe) 10 ml FLUSH ASDIRECTED PRN PRN Reason: Keep Vein Open - Infant Interaction Support Person: - Recovery Exam Fundal Tone: Firm Fundal Level: 1 Fingerbreadths Below Umbilicus Fundal Placement: Midline Lochia Amount: Small Lochia Color: Rubra/Red Perineum Description: Intact, Minimal Bruising/Swelling Episiotomy/Laceration: None Bladder Status: Nonpalpable, Indwelling Catheter in Place Urinary Elimination: Indwelling Catheter - Exam General: Alert, Oriented HEENT: Pupils Equal Neck: Supple Lungs: Clear to Auscultation, Normal Respiratory Effort Cardiovascular: Regular Rate, Regular Rhythm GI/Abdominal Exam: Normal Bowel Sounds, Soft, Non-Tender, No Organomegaly, No Distention, No Abnormal Bruit, No Mass, Pelvis Stable Extremities: Normal Inspection, Normal Range of Motion, Non-Tender, No Pedal Edema, Normal Capillary Refill Skin: Warm, Dry, Intact Wound/Incisions: Healing Well Neurological: No New Focal Deficit Psy/Mental Status: Alert, Normal Affect, Normal Mood - Problem List Review Problem List Initiated/Reviewed/Updated: Yes - My Orders Last 24 Hours: My Active Orders 12/11/20 Breakfast Regular Diet [DIET] Regular Diet [DIET] 12/11/20 07:55 HEP C VIRUS AB [REF] Stat 12/11/20 09:12 Resuscitation Status Routine 12/11/20 19:28 Acetaminophen/oxyCODONE [Percocet 325-5 MG] 1 tab PO Q4H PRN Acetaminophen/oxyCODONE [Percocet 325-5 MG] 2 tab PO Q4H PRN Ibuprofen [Motrin] 600 mg PO Q6H PRN Naloxone [Narcan] 0.1 mg IVPUSH SEECOMMENT PRN diphenhydrAMINE [Benadryl] 25 mg IVPUSH Q6H PRN ePHEDrine [ePHEDrine sulfate] 5 mg IVPUSH SEECOMMENT PRN 12/11/20 19:28 Communication Order [RC] PER UNIT ROUTINE Communication Order [RC] PER UNIT ROUTINE Communication Order [RC] PER UNIT ROUTINE Notify Provider Intake and Out [RC] ASDIRECTED Vital Signs [RC] Q4H Assess Lochia [WOMSER] Per Unit Routine Assess Uterine Involution [WOMSER] Per Unit Routine Medication Administration Instruction [OM.PC] Routine 12/12/20 00:15 Ketorolac [Toradol] 30 mg IVPUSH Q6H 12/12/20 17:55 Urinary Catheter Removal [RC] Per Unit Routine - Assessment Assessment:: POD1 s/p primary . Pain controlled. Powers in place Ambulating, voiding, tolerating po's Breast feeding going great.
--- NOTE | 2020-12-12 09:58 | PCM48HPAN ---
Post Anesthesia Note - EVALUATION WITHIN 48HRS OF ANESTHETIC Vital Signs in Normal Range: Yes Patient Participated in Evaluation: Yes Respiratory Function Stable: Yes Airway Patent: Yes Cardiovascular Function Stable: Yes Hydration Status Stable: Yes Pain Control Satisfactory: Yes Nausea and Vomiting Control Satisfactory: Yes Mental Status Recovered: Yes Vital Signs: Last Vital Signs Temp 36.3 C 12/12/20 09:34 Pulse 81 12/12/20 09:34 Resp 18 12/12/20 09:34 BP 106/60 12/12/20 09:34 Pulse Ox 95 12/12/20 09:34 - COMMENTS/OBSERVATIONS Free Text/Narrative:: no anesthesia complications noted
[2020-12-12] MEDS: Ibuprofen 600 MG Tab PO PRN (19:17)
[2020-12-13] MEDS: Ibuprofen 600 MG Tab PO PRN (02:37)
== END 2020-12-13 02:48 | disposition home or self-care (01) | DRG 540 ==
LOC: JD.OB 07:05 → OBSVTOIN 17:08 → JD.OB 17:09
PROVIDERS: ADMIT Obstetrics & Gynecology; ATTEND Obstetrics & Gynecology
PROC: 10D00Z1 Extraction of Products of Conception, Low, Open Approach (ICD-10-PCS; principal; 2020-12-11)
DX: O48.0 Post-term pregnancy (principal); Z37.0 Single live birth; Z20.822 Contact with and (suspected) exposure to COVID-19; O99.62 Diseases of the digestive system complicating childbirth; K21.9 Gastro-esophageal reflux disease without esophagitis; Z3A.40 40 weeks gestation of pregnancy; Z87.891 Personal history of nicotine dependence; O77.0 Labor and delivery complicated by meconium in amniotic fluid
CPT/HCPCS: 01961; 36415; 59025; 74018; 74018-26; 80053; 81003; 82570; 84156; 85025; 86592; 86803; 86850; 86900; 86901; 99140; A9270-GY; J0330; J0690; J1885; J2405; J2590; J2704; J3010; J3490; J7120; J7121; U0002

== ENCOUNTER 2022-12-07 07:08 | Inpatient (IN) | payer BC ==
[2022-12-07] MEDS ORDERED: Sodium Chloride 0.9% 10 ML Syringe FLUSH PRN (07:19)
[2022-12-07] MEDS ORDERED: Nalbuphine 10 MG/0.5 ML Syringe IVPUSH PRN (07:19)
[2022-12-07] MEDS ORDERED: Ondansetron 4 MG/2 ML SDV IVPUSH PRN ×2 (07:19→15:43)
[2022-12-07] MEDS ORDERED: Oxytocin/Lactated Ringers 10 UNIT/1,000 ML BAG IV SCH (07:30)
[2022-12-07] MEDS: Oxytocin/Lactated Ringers 10 UNIT/1,000 ML BAG IV SCH ×2 (08:31→14:09)
[2022-12-07] MEDS: Lactated Ringers 1,000 ML IV SCH ×2 (08:31→14:09)
[2022-12-07 08:33] LABS: HEMATOCRIT 34.6 % (34.1-44.9); HEMOGLOBIN 11.2 gm/dl (11.2-15.7); MEAN CORPUSCULAR HEMOGLOBIN 28.9 pg (25.6-32.2); MEAN CORPUSCULAR HGB CONC 32.4 g/dl (32.2-35.5); MEAN CORPUSCULAR VOLUME 89.4 fl (79.4-94.8); MEAN PLATELET VOLUME 10.2 fl (9.4-12.3); RED BLOOD CELL COUNT 3.87 M/mm3 (3.98-5.22); WHITE BLOOD CELL COUNT,WBC 6.33 K/mm3 (3.98-10.04)
[2022-12-07 08:34] LABS: PLATELET COUNT,PLT 232 K/mm3 (182-369)
[2022-12-07] MEDS ORDERED: Sodium Chloride 0.9% 10 ML Syringe FLUSH SCH (09:00)
[2022-12-07] MEDS ORDERED: Citric Acid/Sodium Citrate Solution 30 ML Cup PO ONE (14:02)
[2022-12-07] MEDS ORDERED: ceFAZolin 2 GM in Sodium Chloride 0.9% 50 ML IV ONE (14:02)
[2022-12-07] MEDS ORDERED: Metoclopramide 10 MG/2 ML SDV IVPUSH ONE (14:02)
[2022-12-07] MEDS ORDERED: Azithromycin 500 MG in Sodium Chloride 0.9% 250 ML IV ONE (14:02)
[2022-12-07] MEDS ORDERED: Phenylephrine 1% 10 MG/ML SDV ONE (14:35)
[2022-12-07] MEDS ORDERED: Morphine PF 1 MG/ML Amp ONE (14:35)
[2022-12-07] MEDS ORDERED: Oxytocin 10 Units/1 ML SDV ONE ×2 (14:35→15:10)
[2022-12-07] MEDS ORDERED: ceFAZolin 2 GM Vial ONE (14:36)
[2022-12-07] MEDS ORDERED: Ketorolac 30 MG/ML SDV ONE (14:36)
[2022-12-07] MEDS ORDERED: Ondansetron 4 MG/2 ML SDV ONE (14:36)
[2022-12-07] MEDS ORDERED: diphenhydrAMINE 50 MG/ML SDV IVPUSH PRN ×2 (15:43→19:15)
[2022-12-07] MEDS ORDERED: fentaNYL 100 MCG/2 ML SDV IVPUSH PRN (15:43)
[2022-12-07] MEDS ORDERED: Meperidine 50 MG/ML Vial IVPUSH PRN (15:43)
[2022-12-07] MEDS ORDERED: Dextrose 5%-Lactated Ringers 1,000 ML IV SCH (19:15)
[2022-12-07] MEDS ORDERED: Ibuprofen 600 MG Tab PO PRN (19:15)
[2022-12-07] MEDS ORDERED: Docusate Sodium 100 MG Cap PO PRN (19:15)
[2022-12-07] MEDS ORDERED: Naloxone 0.4 MG/ML SDV IVPUSH PRN (19:15)
[2022-12-07] MEDS ORDERED: ePHEDrine 50 MG/ML SDV IVPUSH PRN (19:15)
[2022-12-07] MEDS ORDERED: Acetaminophen/oxyCODONE 325-5 MG Tab PO PRN ×2 (19:15)
[2022-12-07] MEDS: Ketorolac 30 MG/ML SDV IVPUSH SCH (21:44)
[2022-12-08] MEDS: Ketorolac 30 MG/ML SDV IVPUSH SCH ×2 (03:56→09:38)
[2022-12-08 05:23] LABS: HEMATOCRIT 30.1 % (34.1-44.9); MEAN CORPUSCULAR HEMOGLOBIN 28.9 pg (25.6-32.2); MEAN CORPUSCULAR HGB CONC 31.9 g/dl (32.2-35.5); MEAN CORPUSCULAR VOLUME 90.7 fl (79.4-94.8); MEAN PLATELET VOLUME 10.1 fl (9.4-12.3); PLATELET COUNT,PLT 183 K/mm3 (182-369); RED BLOOD CELL COUNT 3.32 M/mm3 (3.98-5.22); WHITE BLOOD CELL COUNT,WBC 8.91 K/mm3 (3.98-10.04)
[2022-12-08 06:04] LABS: HEMOGLOBIN 9.6 gm/dl (11.2-15.7)
== END 2022-12-08 13:00 | disposition home or self-care (01) | DRG 540 ==
LOC: JD.OB 07:08 → OBSVTOIN 15:04 → JD.OB 15:04
PROVIDERS: ADMIT Obstetrics & Gynecology; ATTEND Obstetrics & Gynecology
PROC: 10D00Z1 Extraction of Products of Conception, Low, Open Approach (ICD-10-PCS; principal; 2022-12-07)
PROC: 10H07YZ Insertion of Other Device into Products of Conception, Via Natural or Artificial Opening (ICD-10-PCS; principal; 2022-12-07)
PROC: 10907ZC Drainage of Amniotic Fluid, Therapeutic from Products of Conception, Via Natural or Artificial Opening (ICD-10-PCS; principal; 2022-12-07)
DX: O48.0 Post-term pregnancy (principal); O76 Abnormality in fetal heart rate and rhythm complicating labor and delivery; Z37.0 Single live birth; Z3A.40 40 weeks gestation of pregnancy; Z87.891 Personal history of nicotine dependence
CPT/HCPCS: 36415; 59025; 59409; 85027; 86592; 86850; 86900; 86901; A9270-GY; J0456; J0690; J1885; J2274; J2370; J2405; J2590; J2765; J7050; J7120; J7121

== ENCOUNTER 2023-06-30 13:24 | Emergency (ER) | payer BC ==
[2023-06-30] MEDS: Ketorolac 60 MG/2 ML SDV IM ONE (14:21)
[2023-06-30 14:23] LABS: APPEARANCE,URINE CLEAR (Clear); BILIRUBIN,URINE NEGATIVE (Negative); COLOR,URINE YELLOW (Yellow); GLUCOSE,URINE NEGATIVE (Negative); KETONES,URINE NEGATIVE (Negative); LEUKOCYTE ESTERASE,URINE NEGATIVE (Negative); NITRITE,URINE NEGATIVE (Negative); OCCULT BLOOD,URINE NEGATIVE (Negative); PROTEIN,URINE NEGATIVE (Negative); UROBILINOGEN,URINE 0.2 (0.2-1.0)
[2023-06-30 14:30] LABS: BACTERIA,URINE NOT SEEN /hpf (FEW); EPITHELIAL CELLS,URINE 0-5 /hpf (0-5); MUCUS,URINE NOT SEEN /hpf (FEW); RBC,URINE 0-5 /hpf (0-5); WBC,URINE 0-5 /hpf (0-5)
== END 2023-06-30 15:51 | disposition home or self-care (01) ==
LOC: JD.ED 13:24
DX: M54.50 Low back pain, unspecified (principal)
CPT/HCPCS: 72100; 81001; 96372; 99283; J1885; 99284